=== PATIENT | male | born 1985 | race Caucasian/White ===

== ENCOUNTER 2020-01-20 11:17 | Emergency (ER) | payer SELFPAY ==
[~2020-01-20] VITALS: Ht 177.8 cm; Wt 79.4 kg
[2020-01-20] MEDS ORDERED: Norco 5-325 Ta1 EACH PO (12:06)
[2020-01-20] MEDS ORDERED: METPRE4DP PO (12:06)
[2020-01-20] MEDS ORDERED: IBUP800 PO (12:06)
== END 2020-01-20 12:30 | disposition home or self-care (01) ==
LOC: ER 11:17
DX: M54.42 Lumbago with sciatica, left side (principal); F17.210 Nicotine dependence, cigarettes, uncomplicated
CPT/HCPCS: 96372; 99283-25; J1100; J1885

== ENCOUNTER 2020-06-15 14:05 | Emergency (ER) | payer SELFPAY ==
[~2020-06-15] VITALS: Ht 175.3 cm; Wt 74.8 kg
[~2020-06-15 14:05] MED LIST: IBUP800 PO; METPRE4DP PO; Norco 5-325 Ta1 EACH PO
[2020-06-15 14:44] LABS: Source, Urine Clean Catch
[2020-06-15 14:47] LABS: Bilirubin, Urine Neg (Neg); Blood, Urine Neg (Neg); Glucose Qualitative, Urine Neg (Neg); Ketones, Urine Neg (Neg); Leukocyte Esterase, Urine Neg (Neg); Nitrite, Urine Neg (Neg); Protein, Urine Neg (Neg); Urobilinogen, Urine NORM (Normal); pH, Urine 6.5 (5.0-8.0)
[2020-06-15 14:53] LABS: Appearance, Urine Clear (Clear); Color, Urine Yellow (P-Yellow)
[2020-06-15] MEDS ORDERED: LEVFLO500 PO (15:49)
[2020-06-18] MEDS ORDERED: Percocet 5-3251 EACH PO (17:55)
[2020-06-18] MEDS ORDERED: IBUP400 PO (17:55)
== END 2020-06-15 16:05 | disposition home or self-care (01) ==
LOC: ER 14:05
PROVIDERS: Student in an Organized Health Care Education/Training Program
DX: N45.1 Epididymitis (principal); F17.210 Nicotine dependence, cigarettes, uncomplicated
CPT/HCPCS: 76870; 81003; 99284-25; A9270-GY; J0696